=== PATIENT | male | born 1970 | race African-American/Black ===

== ENCOUNTER 2022-12-25 13:58 | Emergency (ER) | payer MEDICAID ==
[~2022-12-25] VITALS: Ht 177.8 cm; Wt 80.0 kg
[2022-12-25] MEDS ORDERED: IPRATROPIUM/ALBUTEROL 0.5-3(2.5)MG/3ML NEB HHN NR (16:45)
[2022-12-25 16:54] VITALS: PULSE 99; RESP 18; O2SAT 98
[2022-12-25 16:57] LABS: CHLORIDE 99 mEq/L (98-107)
[2022-12-25] MEDS ORDERED: CLONIDINE 0.1MG TABLET PO NR (17:30)
[2022-12-25] MEDS ORDERED: INSULIN REGULAR (HUMULIN R) 300UNITS/3ML VIAL IV NR (19:45)
[2022-12-25] MEDS ORDERED: SODIUM CHLORIDE 0.9% 1,600 ML IV ONE (19:45)
[2022-12-25] MEDS ORDERED: AMLODIPINE 10MG TABLET PO ONE (22:45)
[2022-12-25] MEDS ORDERED: NITROGLYCERIN 0.4MG TABLET SL SL ONE (23:00)
[2022-12-25] MEDS ORDERED: INSU100I28 SQ (23:41)
[2022-12-25] MEDS ORDERED: AMLO10TA80 MT (23:41)
[2022-12-26] VITALS: BP 134/83; PULSE 86; RESP 20; TEMP 98.8
== END 2022-12-26 | disposition home or self-care (01) ==
LOC: ER 13:58
DX: I16.0 Hypertensive urgency (principal); E11.65 Type 2 diabetes mellitus with hyperglycemia; E11.9 Type 2 diabetes mellitus without complications; F17.210 Nicotine dependence, cigarettes, uncomplicated
CPT/HCPCS: 80053; 82962; 36415; 71045; 94640; 96361; 96374; 99285; J1815; Z7610 ×4